=== PATIENT | male | born 1970 | race Hispanic/Latino ===

== ENCOUNTER 2022-04-06 08:25 | Observation (INO) | payer OTHER ==
[~2022-04-06] VITALS: Ht 175.3 cm; Wt 120.2 kg
[2022-04-06] MEDS ORDERED: KETOROLAC TROMETHAMINE 60 MG/2 ML VIAL IM ONE (08:45)
[2022-04-06] MEDS ORDERED: ASPIRIN 81 MG CHEW TAB PO ONE ×2 (08:45→10:30)
[2022-04-06 09:03] LABS: BASOPHILS % 0.5 % (0.0-1.0); EOSINOPHILS # (AUTO) 0.2 (0.0-0.4); HEMATOCRIT 46.3 % (38.2-49.6); HEMOGLOBIN 15.1 g/dL (14.0-18.0); LYMPHOCYTES # (AUTO) 2.3 (1.0-3.2); LYMPHOCYTES % 28.6 % (18.0-39.1); MEAN CORPUSCULAR HEMOGLOBIN 32.7 pg (28-32); MEAN CORPUSCULAR HGB CONC 32.6 g/dL (31-35); MEAN CORPUSCULAR VOLUME 100.2 fL (81-99); MONOCYTES # (AUTO) 0.9 (0.2-0.8); MONOCYTES % 11.4 % (4.4-11.3); NEUTROPHILS # (AUTO) 4.5 (2.1-6.9); NEUTROPHILS % 57.1 % (38.7-80.0); PLATELET COUNT 224 x10e3/uL (140-360); RED BLOOD COUNT 4.62 x10e6/uL (4.3-5.7); RED CELL DISTRIBUTION WIDTH 10.8 % (11.7-14.4)
[2022-04-06 09:28] LABS: ALBUMIN 3.9 g/dL (3.5-5.0); ALBUMIN/GLOBULIN RATIO 1.1 (0.8-2.0); ANION GAP 15.8 mmol/L (8-16); CALCIUM 9.1 mg/dL (8.4-10.2); CREATININE, SERUM 1.05 mg/dL (0.72-1.25); POTASSIUM 3.8 mmol/L (3.5-5.1)
[2022-04-06 09:41] LABS: CREATINE KINASE MB 2.7 ng/mL (0-5.0)
[2022-04-06 10:24] LABS: AMPHETAMINES SCREEN,URINE NEGATIVE (NEGATIVE); BENZODIAZEPINES SCREEN,URINE NEGATIVE (NEGATIVE); PHENCYCLIDINE SCREEN,URINE NEGATIVE (NEGATIVE)
[2022-04-06] MEDS ORDERED: Morphine 4mg INJECTION 4 MG/ML INJ IV PRN (10:30)
[2022-04-06] MEDS ORDERED: ONDANSETRON HCL INJ 2MG/ML 2ML 2 MG/ML VIAL IV PRN (10:30)
[2022-04-06] MEDS ORDERED: HYDRALAZINE HCL 20 MG/ML VIAL IV PRN (10:30)
[2022-04-06] MEDS ORDERED: LISINOPRIL10 MG PO (10:48)
[2022-04-06] MEDS ORDERED: HYDRALAZINE HCL 20 MG/ML VIAL IV STA (12:37)
[2022-04-06 13:17] VITALS: BP 167/92
[2022-04-06] MEDS ORDERED: LISINOPRIL 20 MG TAB PO SCH (13:30)
[2022-04-06 14:08] VITALS: BP 144/73
[2022-04-06 14:34] VITALS: BP 144/73
[2022-04-06 17:37] LABS: CREATINE KINASE MB 2.6 ng/mL (0-5.0)
[2022-04-06 20:00] VITALS: BP 163/101
[2022-04-06] MEDS ORDERED: HYDRALAZINE HCL 25 MG TAB PO PRN (20:45)
[2022-04-06] MEDS ORDERED: HYDROCODON-ACE1 EAC9 PO (20:47)
[2022-04-06] MEDS ORDERED: DEXTROAMP-AMPHE20 M1 PO (20:47)
[2022-04-06] MEDS ORDERED: DEXTROAMPHETAMINE PO SCH (21:00)
[2022-04-06] MEDS ORDERED: [UNRECOGNIZED DRUG - OTHER] PO SCH (21:00)
[2022-04-06] MEDS ORDERED: AMPHETAMINE PO SCH (21:00)
[2022-04-06] MEDS: METOPROLOL TARTRATE 25 MG TAB PO SCH (22:40)
[2022-04-06] MEDS: HYDROCODONE/APAP 10MG-325MG TAB PO SCH (22:41)
[2022-04-06 23:08] LABS: CREATINE KINASE MB 2.3 ng/mL (0-5.0)
[2022-04-07] VITALS: BP 143/78
[2022-04-07 04:00] VITALS: BP 141/90
[2022-04-07 06:17] LABS: BASOPHILS # (AUTO) 0.1 (0.0-0.1); EOSINOPHILS # (AUTO) 0.3 (0.0-0.4); EOSINOPHILS % 3.4 % (0.0-6.0); HEMATOCRIT 42.5 % (38.2-49.6); HEMOGLOBIN 14.2 g/dL (14.0-18.0); LYMPHOCYTES # (AUTO) 2.9 (1.0-3.2); LYMPHOCYTES % 39.8 % (18.0-39.1); MEAN CORPUSCULAR HEMOGLOBIN 32.9 pg (28-32); MEAN CORPUSCULAR HGB CONC 33.4 g/dL (31-35); MEAN CORPUSCULAR VOLUME 98.6 fL (81-99); MONOCYTES # (AUTO) 1.1 (0.2-0.8); MONOCYTES % 14.5 % (4.4-11.3); PLATELET COUNT 211 x10e3/uL (140-360); RED BLOOD COUNT 4.31 x10e6/uL (4.3-5.7); RED CELL DISTRIBUTION WIDTH 11.6 % (11.7-14.4)
[2022-04-07 06:33] LABS: ALBUMIN 3.5 g/dL (3.5-5.0); ALBUMIN/GLOBULIN RATIO 1.1 (0.8-2.0); ANION GAP 13.9 mmol/L (8-16); CALCIUM 8.9 mg/dL (8.4-10.2); CREATININE, SERUM 1.13 mg/dL (0.72-1.25); POTASSIUM 3.9 mmol/L (3.5-5.1)
[2022-04-07 06:57] LABS: CHOL/HDL RATIO 6.5 (3.9-4.7)
[2022-04-07 07:08] LABS: CREATINE KINASE MB 1.9 ng/mL (0-5.0)
[2022-04-07 07:47] VITALS: BP 148/85
[2022-04-07 09:00] VITALS: BP 148/85
[2022-04-07] MEDS: METOPROLOL TARTRATE 25 MG TAB PO SCH (09:00)
[2022-04-07] MEDS ORDERED: LISINOPRIL 20 MG TAB PO SCH (09:00)
[2022-04-07] MEDS: HYDROCODONE/APAP 10MG-325MG TAB PO SCH (09:21)
[2022-04-07] MEDS ORDERED: ATORVASTATIN 40 MG TAB PO SCH (21:00)
== END 2022-04-07 10:28 | disposition home or self-care (01) ==
LOC: ER 08:32 → ERHOLD 12:05 → MED/SURG2 13:16
PROVIDERS: ADMIT Internal Medicine; ATTEND Internal Medicine
DX: S06.0X0A Concussion without loss of consciousness, initial encounter (principal); R07.89 Other chest pain; I16.0 Hypertensive urgency; E78.5 Hyperlipidemia, unspecified; V44.5XXA Car driver injured in collision with heavy transport vehicle or bus in traffic accident, initial encounter; Y93.89 Activity, other specified; Y92.410 Unspecified street and highway as the place of occurrence of the external cause; Z20.822 Contact with and (suspected) exposure to COVID-19; G89.29 Other chronic pain; R91.1 Solitary pulmonary nodule; R00.8 Other abnormalities of heart beat
CPT/HCPCS: 36415 ×2; 70450; 71045; 71250; 72125; 80053 ×2; 80061; 80307; 82550 ×2; 82553 ×2; 83036; 83690; 83880; 84443; 84484 ×2; 85025 ×2; 85379; 93005; 94799 ×2; 99284; G0378 ×2; J0360; J1885; J2270; J2405; U0002